=== PATIENT | female | born 1950 | race Caucasian/White ===

== ENCOUNTER 2017-06-02 12:52 | Inpatient (IN) ==
[2017-06-02] MEDS ORDERED: Nitroglycerin 0.4 MG TAB.SUBL SL PRN (13:28)
[2017-06-02] MEDS ORDERED: Fluticasone Propionate Nasal 50 MCG/SPRAY BOTTLE NS PRN (13:28)
[2017-06-02] MEDS ORDERED: *HR* Morphine Sulfate SR (12 HR) 30 MG TABLET.ER PO SCH (13:30)
[2017-06-02] MEDS: *HR* OxyCODONE Immed Rel 5 MG TABLET PO PRN ×2 (15:39→23:50)
[2017-06-02] MEDS: Famotidine 20 MG TABLET PO SCH (17:39)
--- NOTE | 2017-06-02 19:11 | Internal Med History&Physical ---
Date of Encounter: 06/03/17 Time of Encounter: 19:10 Assessment and Plan (1) Status post total knee replacement, left Current visit: Yes Status: Acute Status post recent left total replacement per Dr. Gardner at [facility]. She is transferred to our rehab unit today. Her incision looks appropriate. In addition to her chronic morphine sulfate ER she will have oxycodone for breakthrough pain. Consultation with PT, OT, RT and Dr. Coulter,PM&R have been arranged. (2) Acute blood loss anemia Current visit: Yes Status: Acute Her hemoglobin has dropped from 8.7 to 7.7 from postop etiology. No acute bleeding or excessive bruising or abnormal findings noted currently. We will monitor. She currently has no symptoms warranting transfusion. (3) HTN (hypertension) Current visit: Yes Status: Chronic Chronic history of hypertension. Her current blood pressure is stable. We will maintain her current medications. Qualifiers: Hypertension type: essential hypertension Qualified Code(s): I10 - Essential (primary) hypertension (4) Chronic kidney disease (CKD) Current visit: Yes Status: Chronic She has a history of chronic kidney disease and sees Dr. Billings as her director hris. We will avoid NSAIDs. We will continue to monitor. Currently her renal function is normal Qualifiers: Chronic kidney disease stage: stage 3 (moderate) Qualified Code(s): N18.3 - Chronic kidney disease, stage 3 (moderate) (5) DMII (diabetes mellitus, type 2) Current visit: Yes Status: Chronic Her diabetes has been under good control with a glycohemoglobin of 5.5%. We will continue monitoring her blood sugars and maintain her current medications for now. Sugar is under adequate control currently Qualifiers: Diabetes mellitus complication status: without complication Diabetes mellitus manager long term care insulin use: unspecified manager long term care insulin use status Qualified Code(s): E11.9 - Type 2 diabetes mellitus without complications (6) Diaz's esophagus Current visit: Yes Status: Chronic We will continue her chronic medication of a PPI and H2 jakub. Currently she having no symptoms Qualifiers: Diaz's esophagus type: without dysplasia Qualified Code(s): K22.70 - Diaz's esophagus without dysplasia (7) Lumbar back pain Current visit: Yes Status: Chronic Chronic history of lumbar back pain, herniated disc, radiculitis etc. She chronically takes morphine sulfate ER twice a day. We will maintain that as her maintenance medication. Qualifiers: Chronicity: chronic Back pain laterality: midline Sciatica presence: without sciatica Qualified Code(s): M54.5 - Low back pain; G89.29 - Other chronic pain (8) Depression Current visit: Yes Status: Chronic We will continue her chronic medications for depression. She seems be doing appropriately well. 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 She chronically takes morphine sulfate ER and we will maintain that current medication as her maintenance. For postop pain we will add oxycodone for breakthrough symptoms. Qualifiers: Chronic pain type: other chronic pain Qualified Code(s): G89.29 - Other chronic pain Internal Medicine - H&P: HPI Chief complaint: I am here for rehab of minute after surgery Admitted From: Hospital to Hospital Transfer Plans for Post Hospital Care: Home History of present illness: Ms. Layne is a 66 year old female with a known history of osteoarthritis of her knees, diabetes mellitus, GERD, hypertension, chronic kidney disease, Diaz's esophagitis and numerous other problems. She is admitted to our rehab unit following left total knee replacement per Dr. Gardner on 05/30/17 at [facility]. She had her right knee replaced 6 years ago. She thinks she is doing well post operatively. She sees Dr. Mittal for her chronic medical problems. Currently she is denying any chest pain, dyspnea, GI or symptoms. Her current pain is 6-8/10 of the left knee. Chronically she takes morphine sulfate for her arthritis and fibromyalgia problems. She has chronic kidney disease and cannot take NSAIDs. She lives alone in a mobile home. She has 6 steps to negotiate to get into the one level home. Past Med Surg Social Fam HX - Past Medical History Medical history: arthritis, diabetes, fibromyalgia, GERD (She has known Diaz' s esophagitis), hyperlipidemia, hypertension, renal disease (His follow by director hris Dr. Billings), other (Has a history of lumbar disc disease) Psychiatric history: anxiety, depression - Past Surgical History Surgical History: appendectomy, knee replacement (Right knee replacement 2010, left knee replacement this week), MIRIAM/BSO, other (Benign fatty growth removed from the left low back area Dr. Alberts) - Social History Smoking Status: Former smoker Smokeless Tobacco Status: No Alcohol use: occasionally Drug use: none Current living situation: Home - Independent (She lives in a mobile home and has 6 steps to negotiate to get into her one level home) Activity Level: Uses cane/walker (Status post left knee replacement) Recent Out of Country Travel Within the Last 8 Weeks: No Exposure or Possible Exposure to Illness During Travel: No - Family History Father Living Status: Age at : 72 Cause of : Leukemia, dementia, hypertension Mother Living Status: Age at : 90 Cause of : Dementia, hypertension, knee problems Sister Living Status: Still Living Hx Family Musculoskeletal Disorders: Yes (History of knee problems) Hx Family Psychosocial Disorders: Yes (History of alcoholism) Internal Medicine - H&P: Meds Amitriptyline [Elavil] 25 mg PO HS 05/20/16 [History] Cetirizine HCl 10 mg PO DAILY 05/20/16 [History] Citalopram Hydrobromide [Celexa] 40 mg PO DAILY 05/20/16 [History] Duloxetine HCl [Cymbalta] 60 mg PO DAILY 05/20/16 [History] Losartan/Hydrochlorothiazide [Hyzaar 100-12.5 Tablet] 1 tab PO DAILY 05/20/16 [ History] Lubiprostone [Amitiza] 24 mcg PO BID 05/20/16 [History] Magnesium Oxide [Magnesium] 400 mg PO DAILY 05/20/16 [History] Metoprolol [Lopressor] 25 mg PO BID 05/20/16 [History] Morphine Sulfate ER (24 HR) [Morphine Sulfate ER Caps] 30 mg PO Q12H 05/20/16 [ History] Omeprazole [PriLOSEC] 40 mg PO BID 05/20/16 [History] Polyethylene Glycol 3350 [MiraLAX] 17 gm PO DAILY PRN 05/20/16 [History] Ranitidine HCl [Heartburn Relief] 150 mg PO BID 05/20/16 [History] Simvastatin [Zocor] 40 mg PO HS 05/20/16 [History] Sitagliptin Phosphate [Januvia] 50 mg PO DAILY 05/20/16 [History] Tizanidine HCl 4 mg PO Q8H PRN 05/20/16 [History] Trazodone HCl 150 mg PO HS 05/20/16 [History] Fluticasone Propionate Nasal [Flonase] 2 spr NS DAILY PRN 04/26/17 [History] Nitroglycerin [Nitrostat] 0.4 mg SL Q5M PRN 04/26/17 [History] Potassium Chloride [K-Tab ER] 20 meq PO QAM 04/26/17 [History] Aspirin Enteric Coated [Aspirin EC] 325 mg PO DAILY #21 tablet. 05/29/17 [Rx] Aspirin [Lo-Dose Aspirin EC] 81 mg PO DAILY 05/30/17 [History] Docusate [Colace] 100 mg PO DAILY PRN 05/30/17 [History] Potassium Chloride [Klor-Con 10] 10 meq PO QPM 05/30/17 [History] Solifenacin Succinate [Vesicare] 10 mg PO DAILY 05/30/17 [History] Lidocaine Patch [Lidoderm 5% patch] 1 each TP DAILY #10 adh..patch 05/31/17 [Rx] Allergies Iodinated Contrast- Oral and IV Dye [Iodinated Contrast Media - IV Dye] Adverse Reaction (Verified 04/26/17 07:13) Itching pregabalin [From Lyrica] Adverse Reaction (Verified 04/26/17 07:13) Cramping of the Muscles - Constitutional Constitutional: no fever(s), no falls, no night sweats - EENT Eyes: no loss of vision, no other visual disturbances Ears: no ear discharge, no ear pain Nose, mouth and throat: no dental pain, no neck mass, no sore throat - Cardiovascular Cardiovascular ROS IM: no chest pain, no claudication, no dyspnea on exertion, no irregular heart rhythm, no palpitations - Respiratory Respiratory: no cough, no dyspnea, no hemoptysis, no dyspnea on exertion Additional comments: Patient does have a history of sleep apnea and has used a CPAP machine for the past month - Gastrointestinal Gastrointestinal: constipation (She has not had a bowel movement since surgery) , no abdominal pain, no diarrhea - Genitourinary Genitourinary: no difficulty voiding, no urinary incontinence, no vaginal discharge - Musculoskeletal Musculoskeletal ROS IM: no numbness, no tingling Additional comments: Recent left total knee replacement. She states she has the appropriate type of pain. Her opposite leg is doing well. She notes no other limitations other than left lower extremity status post surgery - Neurological Neurological ROS: no loss of vision, no paresthesias, no radicular pain, no vertigo - Constitutional Vitals: Temp Pulse Resp BP Pulse Ox 99.0 F 88 18 151/80 96 06/02/17 17:15 06/02/17 17:15 06/02/17 17:15 06/02/17 17:15 06/02/17 17:15 General appearance: Present: A&O X 3, morbidly obese, obese, answers questions appropriately - Eye Eye exam: Present: EOMI. Absent: scleral icterus Additional comments: She wears glasses - ENT ENT exam: Present: mucous membranes moist, TM's normal bilaterally Additional comments: Multiple dental work done no acute changes - Neck Neck exam general surgery: Absent: tenderness, nuchal rigidity, thyromegaly Additional comments: No bruits heard - Respiratory Respiratory exam: Present: CTAB - Cardiovascular Cardiovascular exam: Present: RRR, +S1, +S2, systolic murmur (2/6 systolic murmur at left sternal border) - GI/Abdominal GI/Abdominal exam: Present: normal bowel sounds, soft, no peritoneal signs. Absent: hepatomegaly, mass, tenderness - Extremities Exam Additional comments: Right lower extremity shows good range of motion. Well-healed midline scar from previous knee surgery. Left knee shows honeycomb and clear dressing intact. Birch Tree intact. No signs of infection. There is no seepage or leakage. There is no redness. Has appropriate tenderness. In bed she can flex only about 20 degrees until she had pain. No calf tenderness. Good peripheral pulses. No particular bruising. - Incison Comments: Incision on the left knee is intact. Patsy intact. Clear dressing with honeycomb dressing is in place. No redness. Appropriate tenderness. - Back Exam Additional comments: Patient is a transverse incision measuring about 10 cm in length transversely in the left flank area is healed nicely except for 2 small defects without any drainage. This was from removal of fatty tumor by Dr. Alberts - Neurological Exam Neurological exam: Present: CN II-XII intact, oriented X3, no focal deficits Internal Med - H&P Results - Labs CBC & Chem 7: 06/03/17 05:25 06/03/17 05:25 Labs: Labs have been reviewed. Hemoglobin is dropped from 8.7 day prior to admission to 7.7 today. Follow-up hemoglobin to be arranged. She is not symptomatic at this point. No active signs of bleeding noted.
[2017-06-02] MEDS: traZODone 50 MG TABLET PO SCH (20:39)
[2017-06-02] MEDS: *HR* Morphine Sulfate SR (12 HR) 30 MG TABLET.ER PO SCH (20:40)
[2017-06-02] MEDS: (Lubiprostone [Amitiza] 24 MCG) PO SCH (20:45)
[2017-06-02] MEDS: tiZANidine 4 MG TABLET PO PRN (23:50)
[2017-06-03 05:33] LABS: Basophils % 0.4 %; Eosinophils # 0.2 K/mcL (0.0-0.6); Eosinophils % 2.5 %; Hematocrit 23.1 % (35.3-44.9); Hemoglobin 7.7 g/dL (11.5-15.4); Immature Granulocytes % 0.7 % (0-4); Lymphocytes # 1.8 K/mcL (0.6-4.6); Lymphocytes % 20.4 %; Mean Corpuscular HGB Conc 33.3 g/dL (31.6-35.5); Mean Corpuscular Volume 81.1 fL (83.0-100.0); Mean Platelet Volume 8.9 fL (9.4-12.4); Monocytes # 0.8 K/mcL (0.0-1.3); Monocytes % 8.6 %; Neutrophils # 6.1 K/mcL (1.6-8.9); Nucleated Red Blood Cells 0.3 /100 WBC (0); Platelet Count 154 K/mcL (140-400); Red Blood Count 2.85 M/mcL (3.82-4.97); Red Cell Distribution Width 13.8 % (11.5-14.5); Segmented Neutrophils % 67.4 %
[2017-06-03 05:46] LABS: BUN/Creatinine Ratio 13 (6-26); Blood Urea Nitrogen 14 mg/dL (7-20); Calcium 8.6 mg/dL (8.6-10.8); Carbon Dioxide 24 mEq/L (19-29); Chloride 102 mEq/L (98-109); Glucose 104 mg/dL (70-99); Osmolality,Calculated 287 (280-300); Potassium 3.5 mEq/L (3.5-4.5); Sodium 138 mEq/L (136-145); eGFR For African Americans > 60 (> 60); eGFR For Non-African Americans 52 (> 60)
[2017-06-03] MEDS: Famotidine 20 MG TABLET PO SCH ×2 (06:58→17:05)
[2017-06-03] MEDS: *HR* SitaGLIPtin 25 MG TABLET PO SCH (08:26)
[2017-06-03] MEDS: Magnesium Oxide 400 MG TABLET PO SCH (08:27)
[2017-06-03] MEDS: Loratadine 10 MG TABLET PO SCH (08:27)
[2017-06-03] MEDS: Losartan/HCTZ 50-12.5 TABLET PO SCH (08:27)
[2017-06-03] MEDS: *HR* Morphine Sulfate SR (12 HR) 30 MG TABLET.ER PO SCH ×2 (08:27→21:20)
[2017-06-03] MEDS: (Lubiprostone [Amitiza] 24 MCG) PO SCH ×2 (08:28→21:17)
[2017-06-03] MEDS: Aspirin Enteric Coated 325 MG Tablet PO SCH (08:28)
[2017-06-03] MEDS ORDERED: Aspirin Enteric Coated 81 MG Tablet PO SCH (09:00)
[2017-06-03] MEDS: *HR* OxyCODONE Immed Rel 5 MG TABLET PO PRN ×2 (10:14→15:16)
--- NOTE | 2017-06-03 11:07 | Internal Med Progress Note ---
Date of Encounter: 06/03/17 Time of Encounter: 11:04 - Assessment and plan (1) Status post total knee replacement, left Current Visit: Yes Status: Acute Assessment and plan: She appears to be doing appropriate well. She is 84 degrees of flexion. She is participating appropriately with physical therapy and occupational therapy. I told her she needs to ask for the oxycodone for breakthrough pain. The morphine sulfate is her chronic maintenance analgesia. (2) Acute blood loss anemia Current Visit: Yes Status: Acute Assessment and plan: The hemoglobin dropped from 8.7 down to 7.7 gms. No obvious bleeding noted. The bruising is not excessive. She is not symptomatic with this. Follow-up hemoglobin ordered (3) HTN (hypertension) Current Visit: Yes Status: Chronic Assessment and plan: Mildly elevated blood pressure, we will need to monitor. This may be pain related. Qualifiers: Hypertension type: essential hypertension Qualified Code(s): I10 - Essential (primary) hypertension (4) Chronic kidney disease (CKD) Current Visit: Yes Status: Chronic Assessment and plan: Her last creatinine was normal. Qualifiers: Chronic kidney disease stage: stage 3 (moderate) Qualified Code(s): N18.3 - Chronic kidney disease, stage 3 (moderate) (5) DMII (diabetes mellitus, type 2) Current Visit: Yes Status: Chronic Assessment and plan: Her sugars are under good control. Continue her current medications. Qualifiers: Diabetes mellitus complication status: without complication Diabetes mellitus intermediate insulin use: unspecified block greaser insulin use status Qualified Code(s): E11.9 - Type 2 diabetes mellitus without complications (6) Diaz's esophagus Current Visit: Yes Status: Chronic Assessment and plan: No acute symptoms. Qualifiers: Diaz's esophagus type: without dysplasia Qualified Code(s): K22.70 - Diaz's esophagus without dysplasia (7) Lumbar back pain Current Visit: Yes Status: Chronic Qualifiers: Chronicity: chronic Back pain laterality: midline Sciatica presence: without sciatica Qualified Code(s): M54.5 - Low back pain; G89.29 - Other chronic pain (8) Depression Current Visit: Yes Status: Chronic Qualifiers: Depression Type: major depressive disorder Major depression recurrence: single episode Active/Remission status: in partial remission Qualified Code( s): F32.4 - Major depressive disorder, single episode, in partial remission (9) TAMICA (obstructive sleep apnea) Current Visit: Yes Status: Chronic (10) Chronic pain Current Visit: Yes Status: Chronic Qualifiers: Chronic pain type: other chronic pain Qualified Code(s): G89.29 - Other chronic pain - Subjective Interval history: I saw the patient while she was doing therapy. They think she is doing well. She is walking on the parallel bars. She is waiting for her pain medication to kick in. She has not used her oxycodone for breakthrough pain this morning, just her chronic morphine sulfate ER. She denies any cardiac or respiratory symptoms. Therapists report that she has 85 degrees of flexion on the knee - Constitutional Vitals: Temp Pulse Resp BP Pulse Ox 98.4 F 76 16 114/59 94 06/03/17 07:10 06/03/17 07:10 06/03/17 07:10 06/03/17 07:10 06/03/17 07:10 General appearance: Present: A&O X 3, morbidly obese, answers questions appropriately Exam: I saw her in physical therapy today. She was not dyspneic or having any chest pain - Incison Comments: Incision looks clean and dry. The honeycomb with clear dressing shows belen to be intact. No drainage. No sinus redness. Appropriate bruising medially and inferiorly. No significant edema Internal Medicine: Result - Labs CBC & Chem 7: 06/03/17 05:25 06/03/17 05:25 Labs: Short CBC 06/03/17 Range/Units 05:25 WBC 9.0 (4.3-11.1) K/mcL Hgb 7.7 L (11.5-15.4) g/dL Hct 23.1 L (35.3-44.9) % Plt Count 154 (140-400) K/mcL Neutrophils # 6.1 (1.6-8.9) K/mcL BMP 06/03/17 05:25 Sodium 138 Potassium 3.5 Chloride 102 Carbon Dioxide 24 BUN 14 Creatinine 1.06 Glucose 104 H Calcium 8.6 Hemoglobin has dropped from 8.7 to 7.7. No particular symptoms with this. No active bleeding sites. Consult Discharge Plan - Plan Referrals: Harish Mittal MD [Primary Care Provider] -
[2017-06-03] MEDS: traZODone 50 MG TABLET PO SCH (21:18)
[2017-06-03] MEDS: tiZANidine 4 MG TABLET PO PRN (21:19)
[2017-06-04] MEDS: Famotidine 20 MG TABLET PO SCH ×2 (06:49→15:35)
[2017-06-04] MEDS: Aspirin Enteric Coated 325 MG Tablet PO SCH (09:09)
[2017-06-04] MEDS: *HR* SitaGLIPtin 25 MG TABLET PO SCH (09:09)
[2017-06-04] MEDS: Loratadine 10 MG TABLET PO SCH (09:10)
[2017-06-04] MEDS: *HR* Morphine Sulfate SR (12 HR) 30 MG TABLET.ER PO SCH ×2 (09:10→20:44)
[2017-06-04] MEDS: Losartan/HCTZ 50-12.5 TABLET PO SCH (09:11)
[2017-06-04] MEDS: Magnesium Oxide 400 MG TABLET PO SCH (09:11)
[2017-06-04] MEDS: (Lubiprostone [Amitiza] 24 MCG) PO SCH ×2 (09:12→20:45)
[2017-06-04] MEDS: *HR* OxyCODONE Immed Rel 5 MG TABLET PO PRN ×2 (12:48→17:13)
--- NOTE | 2017-06-04 16:40 | Internal Med Progress Note ---
Date of Encounter: 06/04/17 Time of Encounter: 16:35 - Assessment and plan (1) Status post total knee replacement, left Current Visit: Yes Status: Acute Assessment and plan: Patient is doing well with therapies. Pain is under good control. Continue the same. (2) Acute blood loss anemia Current Visit: Yes Status: Acute Assessment and plan: Hemoglobin increased from 7.7 up to 7.9 now. No excessive bruising. No signs of bleeding. Asymptomatic. Will follow. (3) HTN (hypertension) Current Visit: Yes Status: Chronic Assessment and plan: Blood pressure is minimally elevated. We will monitor. May need further intervention. Qualifiers: Hypertension type: essential hypertension Qualified Code(s): I10 - Essential (primary) hypertension (4) Chronic kidney disease (CKD) Current Visit: Yes Status: Chronic Assessment and plan: Creatinine is normal. Qualifiers: Chronic kidney disease stage: stage 3 (moderate) Qualified Code(s): N18.3 - Chronic kidney disease, stage 3 (moderate) (5) DMII (diabetes mellitus, type 2) Current Visit: Yes Status: Chronic Assessment and plan: Sugars are staying under good control. Qualifiers: Diabetes mellitus complication status: without complication Diabetes mellitus terminal block assembler insulin use: unspecified terminal block assembler insulin use status Qualified Code(s): E11.9 - Type 2 diabetes mellitus without complications (6) Diaz's esophagus Current Visit: Yes Status: Chronic Assessment and plan: Having no reflux symptoms. Qualifiers: Diaz's esophagus type: without dysplasia Qualified Code(s): K22.70 - Diaz's esophagus without dysplasia (7) Lumbar back pain Current Visit: Yes Status: Chronic Assessment and plan: Pain is controlled. Qualifiers: Chronicity: chronic Back pain laterality: midline Sciatica presence: without sciatica Qualified Code(s): M54.5 - Low back pain; G89.29 - Other chronic pain (8) Depression Current Visit: Yes Status: Chronic Qualifiers: Depression Type: major depressive disorder Major depression recurrence: single episode Active/Remission status: in partial remission Qualified Code( s): F32.4 - Major depressive disorder, single episode, in partial remission (9) TAMICA (obstructive sleep apnea) Current Visit: Yes Status: Chronic Assessment and plan: Doing well with her CPAP machine (10) Chronic pain Current Visit: Yes Status: Chronic Assessment and plan: Pain is under adequate control. Qualifiers: Chronic pain type: other chronic pain Qualified Code(s): G89.29 - Other chronic pain - Subjective Interval history: Patient denies any acute symptoms or problems. She thinks her pain is under good control with her chronic morphine sulfate and only needed one oxycodone today. She denies any cardiac or respiratory symptoms. She has not had a bowel movement in nearly a week. She states that is her usual. She refuses her MiraLAX. She refuses to increase her stool softer to twice a day. She will let us know tomorrow if she wants to make a change. She does not have any abdominal pain. She is in the CPM machine and doing well. - Constitutional Vitals: Temp Pulse Resp BP Pulse Ox 98.3 F 98 16 157/78 97 06/04/17 07:50 06/04/17 07:50 06/04/17 07:50 06/04/17 07:50 06/04/17 07:50 General appearance: Present: A&O X 3, morbidly obese, answers questions appropriately - Respiratory Respiratory exam: Present: CTAB - Cardiovascular Additional comments: Slightly irregular rhythm consistent with PACs. S1, S2 and 1/6 systolic murmur - GI/Abdominal GI/Abdominal exam: Present: soft. Absent: tenderness - Extremities Exam Additional comments: Left lower extremity in CPM machine. Incision is clean and dry and dressing is intact. Appropriate bruising. No pitting edema. Right extremity is normal. Internal Medicine: Result - Labs CBC & Chem 7: 06/04/17 05:15 06/03/17 05:25 Labs: Short CBC 06/04/17 Range/Units 05:15 Hgb 7.9 L (11.5-15.4) g/dL hemoglobin went up from 7.7 to 7.9. Consult Discharge Plan - Plan Referrals: Harish Mittal MD [Primary Care Provider] -
[2017-06-04] MEDS: traZODone 50 MG TABLET PO SCH (22:17)
[2017-06-05] MEDS: *HR* SitaGLIPtin 25 MG TABLET PO SCH (07:59)
[2017-06-05] MEDS: Losartan/HCTZ 50-12.5 TABLET PO SCH (08:00)
[2017-06-05] MEDS: Famotidine 20 MG TABLET PO SCH ×2 (08:01→15:40)
[2017-06-05] MEDS: *HR* Morphine Sulfate SR (12 HR) 30 MG TABLET.ER PO SCH ×2 (08:01→20:34)
[2017-06-05] MEDS: Loratadine 10 MG TABLET PO SCH (08:01)
[2017-06-05] MEDS: Magnesium Oxide 400 MG TABLET PO SCH (08:01)
[2017-06-05] MEDS: Aspirin Enteric Coated 325 MG Tablet PO SCH (08:01)
[2017-06-05] MEDS: (Lubiprostone [Amitiza] 24 MCG) PO SCH ×2 (08:02→20:35)
--- NOTE | 2017-06-05 11:12 | Internal Med Progress Note ---
Date of Encounter: 06/05/17 Time of Encounter: 11:09 - Assessment and plan (1) Status post total knee replacement, left Current Visit: Yes Status: Acute Assessment and plan: She is doing well with therapy. Today she will be doing laundry as there is no formal therapy today. Pain control is appropriate and adequate (2) Acute blood loss anemia Current Visit: Yes Status: Acute Assessment and plan: We will recheck her hemoglobin tomorrow. No active bleeding or new bruising noted. (3) HTN (hypertension) Current Visit: Yes Status: Chronic Assessment and plan: Blood pressure is under good control. No hypertensive symptoms. Qualifiers: Hypertension type: essential hypertension Qualified Code(s): I10 - Essential (primary) hypertension (4) Chronic kidney disease (CKD) Current Visit: Yes Status: Chronic Assessment and plan: Last creatinine normal. Follow-up ordered for tomorrow. Qualifiers: Chronic kidney disease stage: stage 3 (moderate) Qualified Code(s): N18.3 - Chronic kidney disease, stage 3 (moderate) (5) DMII (diabetes mellitus, type 2) Current Visit: Yes Status: Chronic Assessment and plan: Sugars have been under good control. Qualifiers: Diabetes mellitus complication status: without complication Diabetes mellitus bed bug exterminator insulin use: unspecified bed bug exterminator insulin use status Qualified Code(s): E11.9 - Type 2 diabetes mellitus without complications (6) Diaz's esophagus Current Visit: Yes Status: Chronic Assessment and plan: Asymptomatic Qualifiers: Diaz's esophagus type: without dysplasia Qualified Code(s): K22.70 - Diaz's esophagus without dysplasia (7) Lumbar back pain Current Visit: Yes Status: Chronic Assessment and plan: Adequate pain control Qualifiers: Chronicity: chronic Back pain laterality: midline Sciatica presence: without sciatica Qualified Code(s): M54.5 - Low back pain; G89.29 - Other chronic pain (8) Depression Current Visit: Yes Status: Chronic Assessment and plan: Seems to be doing well. Continue same medicine Qualifiers: Depression Type: major depressive disorder Major depression recurrence: single episode Active/Remission status: in partial remission Qualified Code( s): F32.4 - Major depressive disorder, single episode, in partial remission (9) TAMICA (obstructive sleep apnea) Current Visit: Yes Status: Chronic (10) Chronic pain Current Visit: Yes Status: Chronic Assessment and plan: Adequate control Qualifiers: Chronic pain type: other chronic pain Qualified Code(s): G89.29 - Other chronic pain - Subjective Interval history: Patient states she is sleepy this morning, Tuesday, but plans to do her laundry this afternoon. She denies any cardiac or respiratory symptoms. Her bowels have a still not moved. She is now willing to increase her Colace to twice a day. She denies any abdominal pain. Her pain control for the knee is appropriate. - Constitutional Vitals: Temp Pulse Resp BP Pulse Ox 98.2 F 66 18 111/72 96 06/05/17 07:04 06/05/17 07:04 06/05/17 07:04 06/05/17 07:04 06/05/17 07:04 General appearance: Present: A&O X 3, morbidly obese, answers questions appropriately - Respiratory Respiratory exam: Present: CTAB - Cardiovascular Cardiovascular exam: Present: RRR, +S1, +S2, systolic murmur (1/6 systolic murmur) - GI/Abdominal GI/Abdominal exam: Present: soft, no peritoneal signs. Absent: mass, tenderness - Extremities Exam Extremities exam: Absent: calf tenderness, pedal edema, tenderness Additional comments: Left lower extremity shows the incisional dressing to be intact. There is no drainage. Pandora intact. Appropriate bruising is clearing Internal Medicine: Result - Labs CBC & Chem 7: 06/04/17 05:15 06/03/17 05:25 Consult Discharge Plan - Plan Referrals: Harish Mittal MD [Primary Care Provider] -
[2017-06-05] MEDS: *HR* OxyCODONE Immed Rel 5 MG TABLET PO PRN (11:34)
[2017-06-05] MEDS: tiZANidine 4 MG TABLET PO PRN (17:02)
[2017-06-05] MEDS: traZODone 50 MG TABLET PO SCH (22:26)
[2017-06-06] MEDS: *HR* OxyCODONE Immed Rel 5 MG TABLET PO PRN ×2 (00:03→11:02)
[2017-06-06 05:31] LABS: Basophils % 0.5 %; Eosinophils # 0.4 K/mcL (0.0-0.6); Eosinophils % 4.2 %; Hematocrit 24.8 % (35.3-44.9); Hemoglobin 8.1 g/dL (11.5-15.4); Immature Granulocytes % 0.7 % (0-4); Lymphocytes # 1.8 K/mcL (0.6-4.6); Lymphocytes % 20.8 %; Mean Corpuscular HGB Conc 32.7 g/dL (31.6-35.5); Mean Corpuscular Hemoglobin 26.8 pg (28.0-33.3); Mean Corpuscular Volume 82.1 fL (83.0-100.0); Monocytes # 0.8 K/mcL (0.0-1.3); Monocytes % 9.6 %; Neutrophils # 5.5 K/mcL (1.6-8.9); Nucleated Red Blood Cells 0.2 /100 WBC (0); Platelet Count 208 K/mcL (140-400); Red Blood Count 3.02 M/mcL (3.82-4.97); Red Cell Distribution Width 13.9 % (11.5-14.5); Segmented Neutrophils % 64.2 %
[2017-06-06 05:44] LABS: BUN/Creatinine Ratio 15 (6-26); Blood Urea Nitrogen 16 mg/dL (7-20); Calcium 8.9 mg/dL (8.6-10.8); Carbon Dioxide 23 mEq/L (19-29); Chloride 103 mEq/L (98-109); Glucose 107 mg/dL (70-99); Osmolality,Calculated 286 (280-300); Potassium 4.3 mEq/L (3.5-4.5); Sodium 137 mEq/L (136-145); eGFR For African Americans > 60 (> 60); eGFR For Non-African Americans 50 (> 60)
[2017-06-06] MEDS: *HR* SitaGLIPtin 25 MG TABLET PO SCH (07:47)
[2017-06-06] MEDS: tiZANidine 4 MG TABLET PO PRN ×2 (07:47→15:50)
[2017-06-06] MEDS: Famotidine 20 MG TABLET PO SCH ×2 (07:47→15:50)
[2017-06-06] MEDS: Aspirin Enteric Coated 325 MG Tablet PO SCH (07:47)
[2017-06-06] MEDS: Magnesium Oxide 400 MG TABLET PO SCH (07:47)
[2017-06-06] MEDS: Loratadine 10 MG TABLET PO SCH (07:47)
[2017-06-06] MEDS: Losartan/HCTZ 50-12.5 TABLET PO SCH (07:47)
[2017-06-06] MEDS: *HR* Morphine Sulfate SR (12 HR) 30 MG TABLET.ER PO SCH ×2 (07:48→19:59)
[2017-06-06] MEDS: (Lubiprostone [Amitiza] 24 MCG) PO SCH ×2 (07:50→20:01)
--- NOTE | 2017-06-06 11:54 | Internal Med Progress Note ---
Date of Encounter: 06/06/17 Time of Encounter: 11:52 - Assessment and plan (1) Status post total knee replacement, left Current Visit: Yes Status: Acute Assessment and plan: Continues to improve with the therapies regarding her left knee replacement. (2) Acute blood loss anemia Current Visit: Yes Status: Acute Assessment and plan: Hemoglobin is up to 8.1 now. (3) HTN (hypertension) Current Visit: Yes Status: Chronic Assessment and plan: Blood pressures under good control. Qualifiers: Hypertension type: essential hypertension Qualified Code(s): I10 - Essential (primary) hypertension (4) Chronic kidney disease (CKD) Current Visit: Yes Status: Chronic Assessment and plan: Creatinine is normal. Qualifiers: Chronic kidney disease stage: stage 3 (moderate) Qualified Code(s): N18.3 - Chronic kidney disease, stage 3 (moderate) (5) DMII (diabetes mellitus, type 2) Current Visit: Yes Status: Chronic Assessment and plan: Sugars are under good control. Qualifiers: Diabetes mellitus complication status: without complication Diabetes mellitus long term care pharmacist insulin use: unspecified senior care insulin use status Qualified Code(s): E11.9 - Type 2 diabetes mellitus without complications (6) Diaz's esophagus Current Visit: Yes Status: Chronic Assessment and plan: No acute symptoms Qualifiers: Diaz's esophagus type: without dysplasia Qualified Code(s): K22.70 - Diaz's esophagus without dysplasia (7) Lumbar back pain Current Visit: Yes Status: Chronic Qualifiers: Chronicity: chronic Back pain laterality: midline Sciatica presence: without sciatica Qualified Code(s): M54.5 - Low back pain; G89.29 - Other chronic pain (8) Depression Current Visit: Yes Status: Chronic Qualifiers: Depression Type: major depressive disorder Major depression recurrence: single episode Active/Remission status: in partial remission Qualified Code( s): F32.4 - Major depressive disorder, single episode, in partial remission (9) TAMICA (obstructive sleep apnea) Current Visit: Yes Status: Chronic (10) Chronic pain Current Visit: Yes Status: Chronic Qualifiers: Chronic pain type: other chronic pain Qualified Code(s): G89.29 - Other chronic pain - Subjective Interval history: Patient denies any cardiac or respiratory problems. Her bowels have not moved for a while, she wants to wait on any further intervention. She is taking stool softener twice a day now. She states her pain is under adequate control. She did well in therapy today - Constitutional Vitals: Temp Pulse Resp BP Pulse Ox 98.9 F 88 15 123/90 97 06/06/17 07:00 06/06/17 09:20 06/06/17 09:20 06/06/17 09:20 06/06/17 09:20 General appearance: Present: A&O X 3, morbidly obese, answers questions appropriately - Respiratory Respiratory exam: Present: CTAB - Cardiovascular Cardiovascular exam: Present: RRR, +S1, +S2. Absent: systolic murmur - GI/Abdominal GI/Abdominal exam: Present: soft. Absent: tenderness - Extremities Exam Additional comments: Left lower leg is currently in a cool pack. I solely incision earlier today well in therapy and it is healing properly. Dressing intact area there is no drainage. Patsy intact. - Incison Comments: Incision looks good. Patsy intact. No drainage. Clear dressing with honeycomb intact. Internal Medicine: Result - Labs CBC & Chem 7: 06/06/17 05:15 06/06/17 05:15 Labs: Short CBC 06/06/17 Range/Units 05:15 WBC 8.5 (4.3-11.1) K/mcL Hgb 8.1 L (11.5-15.4) g/dL Hct 24.8 L (35.3-44.9) % Plt Count 208 (140-400) K/mcL Neutrophils # 5.5 (1.6-8.9) K/mcL BMP 06/06/17 05:15 Sodium 137 Potassium 4.3 Chloride 103 Carbon Dioxide 23 BUN 16 Creatinine 1.10 Glucose 107 H Calcium 8.9 Labs have been reviewed. Hemoglobin up to 8.1 now. Consult Discharge Plan - Plan Referrals: Harish Mittal MD [Primary Care Provider] -
[2017-06-06] MEDS: traZODone 50 MG TABLET PO SCH (21:43)
[2017-06-07 07:05] VITALS: BP 150/73
[2017-06-07] MEDS: tiZANidine 4 MG TABLET PO PRN (07:52)
[2017-06-07] MEDS: Magnesium Oxide 400 MG TABLET PO SCH (07:53)
[2017-06-07] MEDS: *HR* Morphine Sulfate SR (12 HR) 30 MG TABLET.ER PO SCH (07:53)
[2017-06-07] MEDS: Aspirin Enteric Coated 325 MG Tablet PO SCH (07:53)
[2017-06-07] MEDS: Famotidine 20 MG TABLET PO SCH (07:53)
[2017-06-07] MEDS: Loratadine 10 MG TABLET PO SCH (07:53)
[2017-06-07] MEDS: *HR* SitaGLIPtin 25 MG TABLET PO SCH (07:53)
[2017-06-07] MEDS: Losartan/HCTZ 50-12.5 TABLET PO SCH (07:54)
[2017-06-07] MEDS: (Lubiprostone [Amitiza] 24 MCG) PO SCH (07:54)
[2017-06-07] MEDS: *HR* OxyCODONE Immed Rel 5 MG TABLET PO PRN (09:43)
--- NOTE | 2017-06-07 14:34 | Physician Discharge Referral ---
Home Health/Hosp Referral Info Transfer to: Home Health Provider in Charge Post Discharge: PCP () - Diagnosis (1) Status post total knee replacement, left Status: Acute (2) Acute blood loss anemia Status: Acute (3) HTN (hypertension) Status: Chronic (4) Chronic kidney disease (CKD) Status: Chronic (5) DMII (diabetes mellitus, type 2) Status: Chronic (6) Diaz's esophagus Status: Chronic (7) Lumbar back pain Status: Chronic (8) Depression Status: Chronic (9) TAMICA (obstructive sleep apnea) Status: Chronic (10) Chronic pain Status: Chronic - Respiratory Orders Smoking Cessation: Smoking cessation has been advised. For more information, call the [employer] Tobacco Quit Line at 2-042-TMZM-NOW. - Dressing/Wound Care Type of Dressing/Treatments w/Frequency: per orthopedist - Diet/Nutrition Diet/Nutrition Orders: No Added Salt (KACEY) - Activity Activity Orders: Walker - Services Needed Following services are medically necessary services: Nursing, Physical Therapy - Transfer Medications Prescriptions: OxyCODONE Immed Rel [Roxicodone 5 MG] 10 mg PO Q4HR PRN #30 tab PRN Reason: Breakthrough Pain Home Medications: Amitriptyline [Elavil] 25 mg PO HS 05/20/16 [History] Cetirizine HCl 10 mg PO DAILY 05/20/16 [History] Citalopram Hydrobromide [Celexa] 40 mg PO DAILY 05/20/16 [History] Duloxetine HCl [Cymbalta] 60 mg PO DAILY 05/20/16 [History] Losartan/Hydrochlorothiazide [Hyzaar 100-12.5 Tablet] 1 tab PO DAILY 05/20/16 [ History] Lubiprostone [Amitiza] 24 mcg PO BID 05/20/16 [History] Magnesium Oxide [Magnesium] 400 mg PO DAILY 05/20/16 [History] Metoprolol [Lopressor] 25 mg PO BID 05/20/16 [History] Morphine Sulfate ER (24 HR) [Morphine Sulfate ER Caps] 30 mg PO Q12H 05/20/16 [ History] Omeprazole [PriLOSEC] 40 mg PO BID 05/20/16 [History] Polyethylene Glycol 3350 [MiraLAX] 17 gm PO DAILY PRN 05/20/16 [History] Ranitidine HCl [Heartburn Relief] 150 mg PO BID 05/20/16 [History] Simvastatin [Zocor] 40 mg PO HS 05/20/16 [History] Sitagliptin Phosphate [Januvia] 50 mg PO DAILY 05/20/16 [History] Tizanidine HCl 4 mg PO Q8H PRN 05/20/16 [History] Trazodone HCl 150 mg PO HS 05/20/16 [History] Fluticasone Propionate Nasal [Flonase] 2 spr NS DAILY PRN 04/26/17 [History] Nitroglycerin [Nitrostat] 0.4 mg SL Q5M PRN 04/26/17 [History] Potassium Chloride [K-Tab ER] 20 meq PO QAM 04/26/17 [History] Aspirin Enteric Coated [Aspirin EC] 325 mg PO DAILY #21 tablet. 05/29/17 [Rx] Docusate [Colace] 100 mg PO DAILY PRN 05/30/17 [History] Potassium Chloride [Klor-Con 10] 10 meq PO QPM 05/30/17 [History] Solifenacin Succinate [Vesicare] 10 mg PO DAILY 05/30/17 [History] Lidocaine Patch [Lidoderm 5% patch] 1 each TP DAILY #10 adh..patch 05/31/17 [Rx] OxyCODONE Immed Rel [Roxicodone 5 MG] 10 mg PO Q4HR PRN #30 tab 06/07/17 [Rx] Allergies/Adverse Reactions: Allergies Iodinated Contrast- Oral and IV Dye [Iodinated Contrast Media - IV Dye] Adverse Reaction (Verified 04/26/17 07:13) Itching pregabalin [From Lyrica] Adverse Reaction (Verified 04/26/17 07:13) Cramping of the Muscles Certification: Further, I certify that my clinical findings support that this patient is homebound (i.e. absences from home require considerable and taxing effort and are for medical reasons or anabaptist services or infrequently or short duration when for other reasons) because: Homebound Reason: Patient requires assistance of a person or device to safely leave home, Post-surgery restriction and or conditions limit ability to leave home, Leaving home requires considerable and taxing effort due to condition Attestation: My signature below is to certify that this patient is under my care and that I, or nurse practitioner, or a physician's content assistant working with me, has a face-to -face encounter with this patient.
--- NOTE | 2017-06-07 14:40 | Discharge Summary ---
Date of Encounter: 06/07/17 Time of Encounter: 14:36 - Discharge Diagnosis (1) Status post total knee replacement, left Priority: Primary Status: Acute Comments: Patient is a 66-year-old woman from Dr. Mittal's practice who underwent left total knee replacement by Dr. Gardner at [place]. She was transferred to [facility] Rehabilitation Unit on 06/02/17 for therapies prior to returning home. She consultation and therapy with PT, OT, RT and Dr. Coulter PM&R physician. She progressed nicely with her therapies and is now safe for her to transfer to home. She will continue with her walker, cooling pack and her chronic pain medication. Chronically she takes morphine sulfate ER and oxycodone 5 mg 1 or 2 every 4-6 hours as added for breakthrough pain. She has been needing one or two oxycodone per day. Prescription for 30 has been prescribed. She follows up with the orthopedic surgeon's office on . She will follow up with Dr. Mittal as well. (2) Acute blood loss anemia Priority: Secondary Status: Acute Comments: Hemoglobin went as low as 7.7, and before discharge was 8.1. She did not require any blood transfusion in our unit. (3) HTN (hypertension) Priority: Secondary Status: Chronic Comments: High blood pressure has been under fairly good control. Occasionally in the 140s to 150s systolic. Typically staying in the 120s to 130s systolic. She did not have any chest pain or hypertensive symptoms. Qualifiers: Hypertension type: essential hypertension Qualified Code(s): I10 - Essential (primary) hypertension (4) Chronic kidney disease (CKD) Priority: Secondary Status: Chronic Comments: She has a history of chronic kidney disease, but during the stay her creatinine has been normal. Qualifiers: Chronic kidney disease stage: stage 3 (moderate) Qualified Code(s): N18.3 - Chronic kidney disease, stage 3 (moderate) (5) DMII (diabetes mellitus, type 2) Priority: Secondary Status: Chronic Comments: Her blood sugars have been under good control. She will be discharged on her usual chronic medications Qualifiers: Diabetes mellitus complication status: without complication Diabetes mellitus buttermaker continuous churn insulin use: unspecified buttermaker continuous churn insulin use status Qualified Code(s): E11.9 - Type 2 diabetes mellitus without complications (6) Diaz's esophagus Priority: Secondary Status: Chronic Comments: She had no symptoms regarding her Diaz's esophageal problem. She will be discharged on her usual PPI and H2 jakub. Qualifiers: Diaz's esophagus type: without dysplasia Qualified Code(s): K22.70 - Diaz's esophagus without dysplasia (7) Chronic pain Priority: Secondary Status: Chronic Comments: She chronically uses morphine sulfate ER twice a day. During the postop stay she has used oxycodone 1 or 2 doses per day for breakthrough pain. She has done well with this. 30 have been prescribed Qualifiers: Chronic pain type: other chronic pain Qualified Code(s): G89.29 - Other chronic pain (8) Lumbar back pain Priority: Secondary Status: Chronic Comments: She has chronic lumbar back pain. She chronically takes morphine sulfate ER twice a day. She was discharged on the same. No exacerbation noted. Qualifiers: Chronicity: chronic Back pain laterality: midline Sciatica presence: without sciatica Qualified Code(s): M54.5 - Low back pain; G89.29 - Other chronic pain (9) Depression Priority: Secondary Status: Chronic Qualifiers: Depression Type: major depressive disorder Major depression recurrence: single episode Active/Remission status: in partial remission Qualified Code( s): F32.4 - Major depressive disorder, single episode, in partial remission (10) TAMICA (obstructive sleep apnea) Priority: Secondary Status: Chronic - Discharge Medications Prescriptions: OxyCODONE Immed Rel [Roxicodone 5 MG] 10 mg PO Q4HR PRN #30 tab PRN Reason: Breakthrough Pain Home Medications: Amitriptyline [Elavil] 25 mg PO HS 05/20/16 [History] Cetirizine HCl 10 mg PO DAILY 05/20/16 [History] Citalopram Hydrobromide [Celexa] 40 mg PO DAILY 05/20/16 [History] Duloxetine HCl [Cymbalta] 60 mg PO DAILY 05/20/16 [History] Losartan/Hydrochlorothiazide [Hyzaar 100-12.5 Tablet] 1 tab PO DAILY 05/20/16 [ History] Lubiprostone [Amitiza] 24 mcg PO BID 05/20/16 [History] Magnesium Oxide [Magnesium] 400 mg PO DAILY 05/20/16 [History] Metoprolol [Lopressor] 25 mg PO BID 05/20/16 [History] Morphine Sulfate ER (24 HR) [Morphine Sulfate ER Caps] 30 mg PO Q12H 05/20/16 [ History] Omeprazole [PriLOSEC] 40 mg PO BID 05/20/16 [History] Polyethylene Glycol 3350 [MiraLAX] 17 gm PO DAILY PRN 05/20/16 [History] Ranitidine HCl [Heartburn Relief] 150 mg PO BID 05/20/16 [History] Simvastatin [Zocor] 40 mg PO HS 05/20/16 [History] Sitagliptin Phosphate [Januvia] 50 mg PO DAILY 05/20/16 [History] Tizanidine HCl 4 mg PO Q8H PRN 05/20/16 [History] Trazodone HCl 150 mg PO HS 05/20/16 [History] Fluticasone Propionate Nasal [Flonase] 2 spr NS DAILY PRN 04/26/17 [History] Nitroglycerin [Nitrostat] 0.4 mg SL Q5M PRN 04/26/17 [History] Potassium Chloride [K-Tab ER] 20 meq PO QAM 04/26/17 [History] Aspirin Enteric Coated [Aspirin EC] 325 mg PO DAILY #21 tablet. 05/29/17 [Rx] Docusate [Colace] 100 mg PO DAILY PRN 05/30/17 [History] Potassium Chloride [Klor-Con 10] 10 meq PO QPM 05/30/17 [History] Solifenacin Succinate [Vesicare] 10 mg PO DAILY 05/30/17 [History] Lidocaine Patch [Lidoderm 5% patch] 1 each TP DAILY #10 adh..patch 05/31/17 [Rx] OxyCODONE Immed Rel [Roxicodone 5 MG] 10 mg PO Q4HR PRN #30 tab 06/07/17 [Rx] Allergies/Adverse Reactions: Allergies Iodinated Contrast- Oral and IV Dye [Iodinated Contrast Media - IV Dye] Adverse Reaction (Verified 04/26/17 07:13) Itching pregabalin [From Lyrica] Adverse Reaction (Verified 04/26/17 07:13) Cramping of the Muscles Procedures/tests Complete & Pending: Laboratory Results - last 48 hr 06/05/17 06/05/17 06/06/17 16:41 20:23 05:15 WBC 8.5 RBC 3.02 L Hgb 8.1 L Hct 24.8 L MCV 82.1 L MCH 26.8 L MCHC 32.7 RDW 13.9 Plt Count 208 MPV 9.0 L Immature Gran % 0.7 Seg Neutrophils % 64.2 Lymphocytes % 20.8 Monocytes % 9.6 Eosinophils % 4.2 Basophils % 0.5 Neutrophils # 5.5 Lymphocytes # 1.8 Monocytes # 0.8 Eosinophils # 0.4 Basophils # 0.0 Nucleated RBCs/100 WBC 0.2 H Sodium Potassium Chloride Carbon Dioxide BUN Creatinine Est GFR ( Amer) Est GFR (Non-Af Amer) BUN/Creatinine Ratio Glucose POC Glucose 118 H 141 H Calculated Osmolality Calcium 06/06/17 06/06/17 06/06/17 05:15 07:57 11:41 WBC RBC Hgb Hct MCV MCH MCHC RDW Plt Count MPV Immature Gran % Seg Neutrophils % Lymphocytes % Monocytes % Eosinophils % Basophils % Neutrophils # Lymphocytes # Monocytes # Eosinophils # Basophils # Nucleated RBCs/100 WBC Sodium 137 Potassium 4.3 Chloride 103 Carbon Dioxide 23 BUN 16 Creatinine 1.10 Est GFR ( Amer) > 60 Est GFR (Non-Af Amer) 50 L BUN/Creatinine Ratio 15 Glucose 107 H POC Glucose 120 H 131 H Calculated Osmolality 286 Calcium 8.9 06/06/17 06/06/17 06/07/17 16:23 21:01 06:29 WBC RBC Hgb Hct MCV MCH MCHC RDW Plt Count MPV Immature Gran % Seg Neutrophils % Lymphocytes % Monocytes % Eosinophils % Basophils % Neutrophils # Lymphocytes # Monocytes # Eosinophils # Basophils # Nucleated RBCs/100 WBC Sodium Potassium Chloride Carbon Dioxide BUN Creatinine Est GFR ( Amer) Est GFR (Non-Af Amer) BUN/Creatinine Ratio Glucose POC Glucose 124 H 135 H 120 H Calculated Osmolality Calcium 06/07/17 11:54 WBC RBC Hgb Hct MCV MCH MCHC RDW Plt Count MPV Immature Gran % Seg Neutrophils % Lymphocytes % Monocytes % Eosinophils % Basophils % Neutrophils # Lymphocytes # Monocytes # Eosinophils # Basophils # Nucleated RBCs/100 WBC Sodium Potassium Chloride Carbon Dioxide BUN Creatinine Est GFR ( Amer) Est GFR (Non-Af Amer) BUN/Creatinine Ratio Glucose POC Glucose 115 H Calculated Osmolality Calcium Date of admission: 06/02/17 12:52 Primary care physician: Harish Mittal MD Consults: 06/02/17 13:26 Consult to Occupational Therapy [CONS] Routine Comment: Evaluate, develop and implement POC Reason for Consult: eval Consult to Physical Medicine/Rehab [CONS] Routine Reason for Consult: eval Time Notified: 13:27 Call Completed: Yes Consult to Physical Therapy [CONS] Routine Comment: Evaluate, develop and implement POC Reason for Consult: eval Consult to Recreational Therapy [CONS] Routine Comment: Discharging clinician: Martin Malhotra Anticipated date of discharge: 06/07/17 - Patient Status Disposition: Home Health Service Condition: Good Functional capacity at discharge: uses cane/walker Overall status at discharge: patient is not back to baseline - Discharge Instructions Follow Up With: Harish Mittal MD [Primary Care Provider] - Interval History: Today she thinks she is doing well. She has used one oxycodone so far today. She denies a respiratory cardiac symptoms. She has finally had a good bowel movement. She feels like she is ready for home. She will be discharged today. Medically she is stable. Hospital course: Ms. Layne is a 66 year old female with known history of osteoporosis of her knees, diabetes, GERD, hypertension, chronic kidney disease, Diaz's esophagitis numerous other medical problem is. She was admitted to [facility] Rehabilitation Unit following left total knee replaced per Dr. Gardner on 05/30/17 at [place]. She has undergone therapies with PT, OT, RT and has met with Dr. Coulter our music rehabilitation therapist. Patient has advanced nicely. She has 85% flexion of the left knee. Her pain is under good control. Therapies feel that it is safe and appropriate for her to go home now and she will have home health arranged with plans for home PT also. Please see the above diagnoses. - Time Spent with Patient Total time spent providing and/or coordinating discharge services: - Constitutional Vitals: Temp Pulse Resp BP Pulse Ox 98.2 F 76 16 150/73 96 06/07/17 07:00 06/07/17 07:00 06/07/17 07:00 06/07/17 07:00 06/07/17 07:00 General appearance: Present: A&O X 3, morbidly obese, answers questions appropriately - Respiratory Respiratory exam: Present: CTAB - Cardiovascular Cardiovascular exam: Present: RRR, +S1, +S2 - GI/Abdominal GI/Abdominal exam: Present: soft. Absent: tenderness - Extremities Exam Additional comments: Appropriate swelling of the left knee. The honeycomb and clear dressing combination is intact. There is been no drainage. Sutures are in place. She has appropriate bruising. Appropriate tenderness. No calf tenderness. Neurovascular is intact - Incison Comments: Patsy are intact. Sutures clean and dry. Appropriate bruising. No signs of infection.
== END 2017-06-07 15:40 | disposition home health service (06) | DRG 560 ==
LOC: INPGRE 12:52
PROVIDERS: ADMIT Family Medicine; ATTEND Family Medicine